=== PATIENT | male | born 1960 | race Caucasian/White ===

== ENCOUNTER 2019-07-15 08:36 | Inpatient (IN) | payer BC ==
[~2019-07-15] VITALS: Ht 172.7 cm; Wt 123.0 kg
[2019-08-31] VITALS (10 sets, daily range): BP systolic 101–139; BP diastolic 56–88; PULSE 78–99; TEMP 97.6–98
--- NOTE | 2019-08-31 05:34 | NUR ---
Patient ambulates to room from admissions with staff. Denies pain. Explains that he is here today to have a total right knee replacement. Denies concerns at this time.
[2019-08-31] MEDS ORDERED: LOTREL 10 MG-201 CAP PO (05:38)
[2019-08-31] MEDS ORDERED: CRESTOR 10MG10 MG PO (05:39)
[2019-08-31] MEDS ORDERED: PRILOSEC 20MG20 MG PO (05:40)
--- NOTE | 2019-08-31 05:58 | NUR ---
Arrived to joint unit. Assessment complete. Right knee marked and scrubed. Left leg MARY JO hose applied. IV started in right forearm. Patient has significant other at bedside, Kristen. Denies needs at this time.
--- NOTE | 2019-08-31 09:27 | NUR ---
SW attempted to meet with the patient, patient was in surgery and no family present to do intake. SW will attempt at a later time.
--- NOTE | 2019-08-31 10:42 | NUR ---
PT TO ROOM 331 PER BED WITH CAROLE DESIGN ENGINEER @1020. PT DROWSEY AROUSES TO VERBAL, DRESSING CDI WITH MUKUND OVER BULKY DRESSING ON RIGHT KNEE. PT HAS SOME APNIC TENDENCIES AND O2 SAT REMAIN IN LOW 90'S ON O2.
--- NOTE | 2019-08-31 20:15 | NUR ---
Pt. sitting up in bed watching TV. Pt. is A&OX3, assessment complete. INT to lt. hand patent. Dressing to rt. knee CDI. Pt. denies pain or other needs at this time. Call light within reach.
[2019-09-01] VITALS: BP 122/67; PULSE 88; TEMP 97.9
[2019-09-01 05:07] VITALS: BP 125/67; PULSE 90; TEMP 98.1
[2019-09-01] MEDS ORDERED: ASPI325T6 PO (07:06)
[2019-09-01 07:07] LABS: HEMATOCRIT 39.5 % (42.0-52.0); HEMOGLOBIN 13.1 g/dl (13.5-18.0)
[2019-09-01] MEDS ORDERED: SENNA-S 50 MG-81 TAB PO (07:10)
[2019-09-01] MEDS ORDERED: ROXICODONE 55 MG/TAB PO (07:10)
[2019-09-01] MEDS ORDERED: ULTRAM 50MG TAB50 MG PO (07:11)
[2019-09-01 08:42] VITALS: BP 139/71; PULSE 83; TEMP 97.6
--- NOTE | 2019-09-01 11:38 | NUR ---
COMPUTER OPERATIONS SPECIALIST student met with the patient to discuss a discharge plan. The patient lives in [place] with Kristen. The patient has a walker, cane and reports independence with ADLs. The patient's PCP is Dr. Santoro and patient receives medications from [facility] in with no difficulties. The patient does not have advanced directives in the EMR but reports they are completed and designate Kristen. The patient plans to return home upon discharge with [facility] providing transport. The patient will have outpatient physical therapy at [facility] and first appointment is on 09/06. There are no additional needs at this time.
[2019-09-01 12:26] VITALS: BP 129/70; PULSE 89; TEMP 98
--- NOTE | 2019-09-01 12:40 | NUR ---
Initial visit; Patient thanked Accounts Clerk for looking in on him and offering God's blessings and a thorough recovery.
--- NOTE | 2019-09-01 15:00 | NUR ---
PATIENT DISCHARGING HOME VIA WHEELCHAIR TO PERSONAL WITH . GAVE DISCHARGE INSTRUCTIONS, PRESCRIPTIONS & FOLLOW UP APTS. CHANGED POST OP DRESSING AND APPLIED NEW AQUACEL. DC'D IV SITE AND COVERED WITH BANDAID. PATIENT DISCHARGED.
== END 2019-09-01 15:00 | disposition home or self-care (01) | DRG 470 ==
LOC: JCC 08-31 05:03
PROVIDERS: ADMIT Orthopaedic Surgery
PROC: 0SRC069 Replacement of Right Knee Joint with Oxidized Zirconium on Polyethylene Synthetic Substitute, Cemented, Open Approach (ICD-10-PCS; principal; 2019-08-31 07:30)
DX: M17.11 Unilateral primary osteoarthritis, right knee (principal); I10 Essential (primary) hypertension; E78.00 Pure hypercholesterolemia, unspecified; Z87.442 Personal history of urinary calculi
CPT/HCPCS: A4314; A9284; C1776; J0690; J1100; J2250; J2405; J2704; J3010; J7030; J7120